=== PATIENT | male | born 1995 | race Caucasian/White ===

== ENCOUNTER 2016-12-07 12:04 | Emergency (ER) | payer MEDICAID, OTHER ==
[~2016-12-07] VITALS: Ht 167.6 cm; Wt 98.0 kg
[2016-12-07 12:06] VITALS: Ht 167.6 cm; Wt 98.0 kg
[2016-12-07] MEDS ORDERED: ONDANSETRON (ODT) 4 MG TAB ODT STA (12:33)
--- NOTE | 2016-12-07 12:56 | ERD ---
ER Documentation Chief Complaint Date/Time DATE: 12/07/16 TIME: 12:52 Chief Complaint ABDOMINAL PAIN RADIATING TO RIGHT CHEST X 3 DAYS HPI This 21-year-old male who presents the emergency department today with his mother stating that one week ago today he fainted and went to [facility] was told he had dehydration. They did an EKG on him at that time. States he is unsure of the results. States he was smoking marijuana when he feinted. States that 3 days later he developed some abdominal pain and some nausea and it went up towards his chest and they did a chest x-ray and he was told that it was "normal". States he gave him ibuprofen for the pain and was told it was musculoskeletal. States that the pain comes and goes. States that he is only having one bowel movement a day. Denies any fevers or chills. Denies any loss of consciousness or hitting his head during syncopal event. ROS All systems reviewed and are negative except as per history of present illness. Medications Home Meds Active Scripts Ondansetron Hcl* (Zofran*) 4 Mg Tablet, 4 MG PO Q6H for NAUSEA AND/OR VOMITING, #30 TAB Prov:LUIS ARMANDO TRACEY PA-C 12/07/16 Naproxen* (Naprosyn*) 500 Mg Tablet, 500 MG PO BID Y for PAIN AND/OR INFLAMMATION, #30 TAB Prov:LUIS ARMANDO TRACEY PA-C 12/07/16 Polyethylene Glycol* (Miralax*) 17 Gm Powd.pack, 17 GM PO DAILY, #15 Prov:LUIS ARMANDO TRACEY PA-C 12/07/16 Allergies Allergies: Coded Allergies: No Known Allergy (Unverified , 12/07/16) PMhx/Soc Medical and Surgical Hx: pt denies Medical Hx, pt denies Surgical Hx Physical Exam Vitals Vital Signs Date Time Temp Pulse Resp B/P Pulse Ox O2 Delivery O2 Flow Rate FiO2 12/07/16 12:06 98.0 58 18 171/98 98 Physical Exam Const: Obese, no acute distress Head: Atraumatic Eyes: Normal Conjunctiva ENT: Normal External Ears, Nose and Mouth. Neck: Full range of motion..~ No meningismus. Resp: Clear to auscultation bilaterally. Mild tenderness to palpation with compression. Cardio: Regular rate and rhythm, no murmurs Abd: Soft, right upper quadrant tenderness non distended. Normal bowel sounds. No right lower quadrant pain. No tenderness McBurney's. No left lower quadrant pain. Skin: No petechiae or rashes Back: No midline or flank tenderness. No CVA tenderness. Ext: No cyanosis, or edema Neur: Awake and alert Psych: Normal Mood and Affect Result Diagram: 12/07/16 1250 12/07/16 1250 Results 24 hrs Laboratory Tests Test 12/07/16 12:50 White Blood Count 8.110^3/ul Red Blood Count 5.4810^6/ul Hemoglobin 16.9g/dl Hematocrit 49.1% Mean Corpuscular Volume 89.6fl Mean Corpuscular Hemoglobin 30.8pg Mean Corpuscular Hemoglobin Concent 34.4g/dl Red Cell Distribution Width 12.5% Platelet Count 01185^3/UL Mean Platelet Volume 10.6fl Neutrophils % 64.2% Lymphocytes % 27.9% Monocytes % 6.7% Eosinophils % 0.5% Basophils % 0.5% Nucleated Red Blood Cells % 0.0/100WBC Neutrophils # 5.210^3/ul Lymphocytes # 2.310^3/ul Monocytes # 0.510^3/ul Eosinophils # 0.010^3/ul Basophils # 0.010^3/ul Nucleated Red Blood Cells # 0.010^3/ul Urine Color YELLOW Urine Clarity SLIGHTLY CLOUDY Urine pH 5.0 Urine Specific [place] 1.028 Urine Ketones TRACEmg/dL Urine Nitrite NEGATIVEmg/dL Urine Bilirubin NEGATIVEmg/dL Urine Urobilinogen NEGATIVEmg/dL Urine Leukocyte Esterase NEGATIVELeu/ul Urine Microscopic RBC 1/HPF Urine Microscopic WBC 2/HPF Urine Mucus MANY/HPF Urine Hemoglobin 2+mg/dL Urine Glucose NEGATIVEmg/dL Urine Total Protein 1+mg/dl Sodium Level 146mmol/L Potassium Level 3.8mmol/L Chloride Level 100mmol/L Carbon Dioxide Level 26mmol/L Anion Gap 24 Blood Urea Nitrogen 12mg/dl Creatinine 0.78mg/dl Glucose Level 94mg/dl Calcium Level 10.1mg/dl Total Bilirubin 0.7mg/dl Direct Bilirubin 0.00mg/dl Indirect Bilirubin 0.7mg/dl Aspartate Amino Transf (AST/SGOT) 20IU/L Alanine Aminotransferase (ALT/SGPT) 32IU/L Alkaline Phosphatase 105IU/L Total Protein 8.3g/dl Albumin 5.1g/dl Globulin 3.20g/dl Albumin/Globulin Ratio 1.59 Lipase 480U/L Current Medications Medications (Trade) Dose Ordered Sig/Debbi Route PRN Reason Start Time Stop Time Status Last Admin Dose Admin Ondansetron HCl (Zofran Odt) 4 mg ONCE STAT ODT 12/07/16 12:33 12/07/16 12:35 DC 12/07/16 12:48 Acetaminophen/ Hydrocodone Bitart (Docena (5/325)) 1 tab ONCE ONCE PO 12/07/16 13:00 12/07/16 13:01 DC 12/07/16 12:48 DIAGNOSTIC IMAGING REPORT Patient: NILESH ROWE : 1995 Age: 21 Sex: M MR #: [id number] DOS: 12/07/16 1233 Ordering MD: LUIS ARMANDO TRACEY PA-C Location: [facility] Room/Bed: PROCEDURE: Right upper quadrant ultrasound CLINICAL INDICATION: Abdominal pain TECHNIQUE: Multiple real-time images were acquired of the patient's abdomen and right retroperitoneum utilizing a high resolution transducer. COMPARISON: None FINDINGS: The liver is normal in echogenicity and measures 14.2 cm. No focal hepatic masses are seen. The gallbladder is physiologically distended. There is no evidence of gallstones, gallbladder wall thickening, or pericholecystic fluid. The intra and extrahepatic bile ducts are normal in caliber. The common bile duct measures 2.9 mm. Pancreas is not visualized due to overlying bowel gas Survey views of the right kidney demonstrate no evidence of hydronephrosis or renal calculi. The right kidney measures 10.5 cm. IMPRESSION: 1. No evidence cholelithiasis or acute cholecystitis. 2. Pancreas not visualized RPTAT: HH .Edson Olivier MD, Date Time Electronically viewed and signed by .Edson Olivier MD, on 12/07/2016 14:14 .W/ CC: LUIS ARMANDO TRACEY PA-C DIAGNOSTIC IMAGING REPORT Patient: NILESH ROWE : 1995 Age: 21 Sex: M MR #: [id number] [facility] #: [id number] DOS: 12/07/16 1433 Ordering MD: LUIS ARMANDO TRACEY PA-C Location: [facility] Room/Bed: PROCEDURE: CT Abdomen and Pelvis without contrast. CLINICAL INDICATION: Right sided abdominal pain. TECHNIQUE: CT scan of the abdomen and pelvis without contrast was performed on a multidetector high-resolution CT scanner. The patient was scanned without intravenous contrast. Coronal and sagittal reformatted images were obtained from the axial source images. Images were reviewed on a high-resolution PACS workstation. One or more of the following dose reduction techniques were used: Automated exposure control, adjustment of the mA and/or kV according to patient size, use of iterative reconstruction technique. The total exam CTDI equals 21.58 mGy and the total exam DLP equals 1390.32 mGy-cm. COMPARISON: None. FINDINGS: CT abdomen: The lung bases are clear. The heart size is normal, without pericardial thickening or effusion. The liver is normal in size and density without focal mass or intrahepatic biliary dilatation. The spleen is normal in size and homogeneous in density. The stomach is grossly unremarkable. The pancreas as visualized is normal. The gallbladder and biliary tree are unremarkable and there is no evidence for biliary dilatation. The adrenal glands are symmetric and normal. The kidneys are symmetrically unremarkable as well. No renal calculus or obstructive uropathy or mass lesion is seen. The aorta is of normal caliber. There is no retroperitoneal lymphadenopathy. The fabiola hepatis region is clear. The small bowel and mesentery, as visualized , are unremarkable. CT pelvis: The small bowel loops situated within the pelvis are unremarkable. The pelvic organs are normal. The pelvic sidewalls and inguinal regions are clear. The sigmoid colon and rectum are unremarkable. The appendix is normal. No mass, lymphadenopathy, or free fluid is seen. No acute inflammation is seen. There is minimal retrolisthesis of L4-L5. Chronic bilateral pars defects are present L5. No osteolytic or osteoblastic lesion is detected. IMPRESSION: 1. No abdominal or pelvic acute inflammatory process, mass, or lymphadenopathy. 2. Minimal retrolisthesis of L4-L5. Chronic bilateral pars defects are present L5. RPTAT: QQ .Alvaro Lea MD, MD Date Time Electronically viewed and signed by .Alvaro Lea MD, MD on 12/07/2016 15:14 .A/ CC: LUIS ARMANDO TRACEY PA-C Procedures/[facility] This is a 21-year-old male who presents to the emergency department today with multiple complaints. Per the report of the patient has syncopal episode approximately 1 week ago. Patient was complaining of abdominal pain that goes up towards his chest today. An EKG, laboratory work and imaging was done as patient has right upper quadrant tenderness. EKG read and interpreted by Dr. Pena: Rate [address] elevation. No QT prolongation. Sinus bradycardia. Laboratory work shows no elevated white blood cell count. He is not anemic. Platelets are within normal limits. Sodium is very mildly elevated. Glucose is within normal limits. Liver function is within normal limits. Bilirubin is within normal limits. Lipase is elevated at 480. UA is negative for infection. Right upper quadrant ultrasound shows no evidence of cholelithiasis or acute cholecystitis. There is no gallbladder wall thickening or pericholecystic fluid or evidence of gallstones Patient has upper abdominal pain of uncertain etiology however his lipase was elevated at 480. I explained the results to the patient and the mother and the mother became very concerned as father had from colon and pancreatic cancer. I agreed to obtain CT abdomen pelvis noncontrast CT abdomen pelvis shows no abdominal or pelvic acute inflammatory process, mass or lymphadenopathy. There is minimal retrolisthesis of L4 and 5 and chronic bilateral pars defects present at L5. Do not feel the patient requires a chest x-ray given that patient indicated a normal chest x-ray a few days ago. Patient is not tachycardic. His oxygen saturation is 98%. Low suspicion for pneumonia, PE, abscess, pleural effusion, pneumothorax. Patient had syncopal episode of uncertain etiology however it may be due to drug use at the time. Patient was instructed to stop abusing drugs. Patient's EKG showed that he had sinus bradycardia however I have low suspicion for symptomatic bradycardia. Likely more vasovagal or related to the drug use. Patient was given Docena and Zofran here in the emergency department. Patient will be given a prescription for Zofran, Naprosyn, MiraLAX for home as patient had been complaining of only 1 bowel movement a day and he is used to having 2. Low suspicion for obstruction. Discussed the patient with Dr. Chris and he is in agreement with the plan Departure Diagnosis: Primary Impression: Abdominal pain Abdominal location: right upper quadrant Qualified Code: R10.11 - Right upper quadrant abdominal pain Condition: Fair LUIS ARMANDO TRACEY PA-C Dec 07, 2016 12:56
[2016-12-07] MEDS ORDERED: HYDROCODONE/APAP (5/325) TAB PO ONE (13:00)
[2016-12-07 13:11] LABS: BASOPHILS % 0.5 % (0.0-2.0); EOSINOPHILS % 0.5 % (0.0-7.0); HEMATOCRIT 49.1 % (42.0-52.0); HEMOGLOBIN 16.9 g/dl (14.0-18.0); LYMPHOCYTES # 2.3 10^3/ul (0.8-2.9); LYMPHOCYTES % 27.9 % (18.0-55.0); MEAN CORPUSCULAR HEMOGLOBIN 30.8 pg (29.0-33.0); MEAN CORPUSCULAR HGB CONC 34.4 g/dl (32.0-37.0); MEAN CORPUSCULAR VOLUME 89.6 fl (72.0-104.0); MEAN PLATELET VOLUME 10.6 fl (7.4-10.4); MONOCYTE # 0.5 10^3/ul (0.3-0.9); MONOCYTES % 6.7 % (0.0-13.0); NEUTROPHIL # 5.2 10^3/ul (1.6-7.5); NEUTROPHILS % 64.2 % (30.0-74.0); PLATELET COUNT 202 10^3/UL (140-415); RED BLOOD COUNT 5.48 10^6/ul (4.70-6.10); RED CELL DISTRIBUTION WIDTH 12.5 % (11.5-14.5); WHITE BLOOD COUNT 8.1 10^3/ul (4.8-10.8)
[2016-12-07 13:23] LABS: ADD UMIC YES; UR ASCORBIC ACID NEGATIVE (NEGATIVE); UR BILIRUBIN (Dip) NEGATIVE (NEGATIVE); UR BLOOD (Dip) 2+ mg/dL (NEGATIVE); UR CLARITY SLIGHTLY CLOUDY (CLEAR); UR COLOR YELLOW (YELLOW); UR GLUCOSE (Dip) NEGATIVE (NEGATIVE); UR KETONES (Dip) TRACE mg/dL (NEGATIVE); UR LEUKOCYTE ESTERASE (Dip) NEGATIVE Leu/ul (NEGATIVE); UR MUCUS MANY /HPF (NONE SEEN); UR NITRITE (Dip) NEGATIVE (NEGATIVE); UR RBC 1 /HPF (0-5); UR SPECIFIC GRAVITY (Dip) 1.028 (1.003-1.030); UR TOTAL PROTEIN (Dip) 1+ mg/dl (NEGATIVE); UR UROBILINOGEN (Dip) NEGATIVE (NEGATIVE)
[2016-12-07 13:24] LABS: ADD SCAN DIFF NO
[2016-12-07 13:34] LABS: ALBUMIN 5.1 g/dl (3.3-4.9); ALBUMIN/GLOBULIN RATIO 1.59; BILIRUBIN,INDIRECT 0.7 mg/dl (0-1.1); BILIRUBIN,TOTAL 0.7 mg/dl (0.2-1.3); CALCIUM 10.1 mg/dl (8.4-10.2); CREATININE 0.78 mg/dl (0.61-1.24); POTASSIUM 3.8 mmol/L (3.5-5.1); TOTAL PROTEIN 8.3 g/dl (6.1-8.1)
--- NOTE | 2016-12-07 14:14 | RADRPT ---
PROCEDURE: Right upper quadrant ultrasound CLINICAL INDICATION: Abdominal pain TECHNIQUE: Multiple real-time images were acquired of the patient's abdomen and right retroperiton eum utilizing a high resolution transducer. COMPARISON: None FINDINGS: The liver is normal in echogenicity and measures 14.2 cm. No focal hepatic masses are seen. The ga llbladder is physiologically distended. There is no evidence of gallstones, gallbladder wall thicke chely, or pericholecystic fluid. The intra and extrahepatic bile ducts are normal in caliber. The c ommon bile duct measures 2.9 mm. Pancreas is not visualized due to overlying bowel gas Survey views of the right kidney demonstrate no evidence of hydronephrosis or renal calculi. The ri ght kidney measures 10.5 cm. IMPRESSION: 1. No evidence cholelithiasis or acute cholecystitis. 2. Pancreas not visualized RPTAT: HH .Edson Olivier MD, Date Time Electronically viewed and signed by .Edson Olivier MD, on 12/07/2016 14:14 .W/
[2016-12-07] MEDS ORDERED: POLY17PO6 PO (15:09)
[2016-12-07] MEDS ORDERED: ONDA4TAB8 PO (15:12)
[2016-12-07] MEDS ORDERED: NAPR-260 PO (15:12)
--- NOTE | 2016-12-07 15:14 | RADRPT ---
PROCEDURE: CT Abdomen and Pelvis without contrast. CLINICAL INDICATION: Right sided abdominal pain. TECHNIQUE: CT scan of the abdomen and pelvis without contrast was performed on a multidetector hig h-resolution CT scanner. The patient was scanned without intravenous contrast. Coronal and sagittal reformatted images were obtained from the axial source images. Images were reviewed on a high-resol [employer] PACS workstation. One or more of the following dose reduction techniques were used: Automated exposure control, adjustment of the mA and/or kV according to patient size, use of iterative recon struction technique. The total exam CTDI equals 21.58 mGy and the total exam DLP equals 1390.32 mGy -cm. COMPARISON: None. FINDINGS: CT abdomen: The lung bases are clear. The heart size is normal, without pericardial thickening or effusion. The liver is normal in size and density without focal mass or intrahepatic biliary dilatation. The spleen is normal in size and homogeneous in density. The stomach is grossly unremarkable. The panc reas as visualized is normal. The gallbladder and biliary tree are unremarkable and there is no dilcia dence for biliary dilatation. The adrenal glands are symmetric and normal. The kidneys are symmetr ically unremarkable as well. No renal calculus or obstructive uropathy or mass lesion is seen. The aorta is of normal caliber. There is no retroperitoneal lymphadenopathy. The fabiola hepatis reg ion is clear. The small bowel and mesentery, as visualized, are unremarkable. CT pelvis: The small bowel loops situated within the pelvis are unremarkable. The pelvic organs are normal. T he pelvic sidewalls and inguinal regions are clear. The sigmoid colon and rectum are unremarkable. The appendix is normal. No mass, lymphadenopathy, or free fluid is seen. No acute inflammation is s een. There is minimal retrolisthesis of L4-L5. Chronic bilateral pars defects are present L5. No osteol ytic or osteoblastic lesion is detected. IMPRESSION: 1. No abdominal or pelvic acute inflammatory process, mass, or lymphadenopathy. 2. Minimal retrolisthesis of L4-L5. Chronic bilateral pars defects are present L5. RPTAT: QQ .Alvaro Lea MD, MD Date Time Electronically viewed and signed by .Alvaro Lea MD, MD on 12/07/2016 15:14 .A/
[2016-12-07 16:04] VITALS: BP 118/64; PULSE 75; RESP 19; TEMP 98.2
== END 2016-12-07 16:05 | disposition home or self-care (01) ==
LOC: FTE 12:04
DX: R10.11 Right upper quadrant pain (principal); R11.0 Nausea
CPT/HCPCS: 74176; 76705; 80053; 81001; 83690; 85025; Z7610; 93005